=== PATIENT | female | born 2000 | race Caucasian/White ===

== ENCOUNTER 2023-07-04 09:44 | Emergency (ER) | payer OTHER ==
[2023-07-04] MEDS ORDERED: Boostrix 0.5 ML (Tdap) VIAL (>/=7 yrs of age) ONE (10:28)
[2023-07-04] MEDS ORDERED: Ibuprofen 200 MG TAB ONE (10:28)
== END 2023-07-04 11:52 | disposition home or self-care (01) ==
LOC: ERS 09:44
DX: S02.5XXA Fracture of tooth (traumatic), initial encounter for closed fracture (principal); V00.141A Fall from scooter (nonmotorized), initial encounter
CPT/HCPCS: 70450; 70486; 90471; 90715